=== PATIENT | female | born 1950 | race Two or more races ===

== ENCOUNTER 2020-04-21 09:30 | Inpatient (IN) | payer OTHER ==
[~2020-04-21] VITALS: Ht 157.5 cm; Wt 108.9 kg
[2020-04-21] MEDS ORDERED: DIVALPROEX SOD500 MG PO (11:34)
[2020-04-21] MEDS ORDERED: JANUMET XR 1001 EACH PO (11:34)
[2020-04-21] MEDS ORDERED: LASIX40 MG PO (11:35)
[2020-04-21] MEDS ORDERED: CARVEDILOL6.25 M1 PO (11:35)
[2020-04-21] MEDS ORDERED: COZAAR50 MG PO (11:35)
[2020-04-21] MEDS ORDERED: ATORVASTATIN CA20 MG PO (11:36)
[2020-04-21] MEDS ORDERED: ADULT LOW DOSE81 M1 PO (11:36)
[2020-05-01] MEDS ORDERED: INTEGRA PLUS C1 EACH PO (08:12)
[2020-05-01] MEDS ORDERED: BACTRIM 400-801 EACH PO (08:12)
[2020-05-01] MEDS ORDERED: OXYC1TAB9 PO (08:12)
[2020-05-01] MEDS ORDERED: XARELTO10 MG PO (08:12)
== END 2020-05-01 13:43 | disposition home or self-care (01) | DRG 470 ==
LOC: SURH 04-28 07:45 → O/R 04-28 08:24 → SURH 04-28 09:30
PROVIDERS: ADMIT Orthopaedic Surgery Sports Medicine; ATTEND Orthopaedic Surgery Sports Medicine
PROC: 0SRD0J9 Replacement of Left Knee Joint with Synthetic Substitute, Cemented, Open Approach (ICD-10-PCS; principal; 2020-04-28 07:45)
PROC: 30233N1 Transfusion of Nonautologous Red Blood Cells into Peripheral Vein, Percutaneous Approach (ICD-10-PCS; 2020-04-30)
DX: M17.12 Unilateral primary osteoarthritis, left knee (principal); D62 Acute posthemorrhagic anemia; I10 Essential (primary) hypertension; E78.49 Other hyperlipidemia